=== PATIENT | female | born 1990 | race Caucasian/White ===

== ENCOUNTER 2021-02-06 14:10 | Inpatient (IN) | payer SELFPAY ==
[2021-02-06 14:40] VITALS: BMI 45.4
[2021-02-06] MEDS: BuSPIRONE 10 mg Tablet PO (17:50)
--- NOTE | 2021-02-06 20:48 | PC.NURSE ---
patients vitals were not put in
[2021-02-06 20:50] VITALS: BP 130/76; PULSE 112; RESP 18; TEMP 37; O2SAT 95
[2021-02-06] MEDS: topiramate 25 mg Tablet 50 MG PO (21:52)
[2021-02-06] MEDS: hyDROXYzine 25 mg Capsule 50 MG PO (21:52)
[2021-02-06] MEDS: trazodone 50 mg Tablet PO (21:52)
--- NOTE | 2021-02-06 21:55 | PC.NURSE ---
Patient requested medication for sleep and anxiety. Trazodone 50mg PO and Vistaril 50mg PO given.
[2021-02-07 06:00] VITALS: BP 116/75; PULSE 81; RESP 18; TEMP 36.5; O2SAT 95
[2021-02-07] MEDS: BuSPIRONE 10 mg Tablet PO ×2 (09:26→18:11)
[2021-02-07] MEDS: sertraline 50 mg Tablet PO (09:26)
[2021-02-07] MEDS: OLANZapine 10 mg TABLET PO (09:26)
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
[2021-02-07 14:00] VITALS: BP 103/66; PULSE 90; RESP 17; TEMP 36.6; O2SAT 95
[2021-02-07 20:58] VITALS: BP 127/88; PULSE 121; RESP 22; TEMP 36.6; O2SAT 93
[2021-02-07 21:03] VITALS: BP 110/69; PULSE 79; RESP 18; TEMP 36.9; O2SAT 98
[2021-02-07] MEDS: trazodone 50 mg Tablet PO (22:03)
[2021-02-07] MEDS: topiramate 25 mg Tablet 50 MG PO (22:04)
[2021-02-07] MEDS: hyDROXYzine 25 mg Capsule 50 MG PO (22:04)
--- NOTE | 2021-02-07 22:04 | PC.NURSE ---
Trazodone 50mg PO and Vistaril 50mg PO given for sleep / anxiety per patient request
[2021-02-08 06:00] VITALS: BP 96/52; PULSE 73; RESP 17; TEMP 36.7; O2SAT 92
[2021-02-08] MEDS: OLANZapine 10 mg TABLET PO (09:37)
[2021-02-08] MEDS: BuSPIRONE 10 mg Tablet PO ×2 (09:37→17:43)
[2021-02-08] MEDS: sertraline 50 mg Tablet PO (09:37)
--- NOTE | 2021-02-08 12:27 | NPU.GN ---
[facility] Topic:depression General Mood of Group: Edita participated in Group today. Edita was on time to group, dressed appropriately, she was well groomed and had good hygiene. We played Lightwire, at the end of the game, everyone was asked to write a number for how many of the symptoms they are having on top. Edita wrote her number down, we discussed the different symptoms of depression and how the symptoms listed that pertained to them are a way to know where to start when speaking with the doctor. It was also discussed the importance of following up with their mental health care, discussed ways to make appointments to see a mental health provider, ways to speak with their doctor about their symptoms.
[2021-02-08 14:00] VITALS: BP 96/65; PULSE 87; RESP 17; TEMP 36.3; O2SAT 93
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
[2021-02-08] MEDS: topiramate 25 mg Tablet 50 MG PO (20:05)
[2021-02-08 20:15] VITALS: BP 123/81; PULSE 97; RESP 17; TEMP 36.6; O2SAT 98
[2021-02-08] MEDS: trazodone 50 mg Tablet PO (20:48)
[2021-02-08] MEDS: acetaminophen 325 mg Tablet 650 MG PO (23:28)
[2021-02-09 06:00] VITALS: BP 113/71; PULSE 81; RESP 16; TEMP 36.7; O2SAT 96
[2021-02-09] MEDS: OLANZapine 10 mg TABLET PO (08:17)
[2021-02-09] MEDS: sertraline 50 mg Tablet PO (08:17)
[2021-02-09] MEDS: BuSPIRONE 10 mg Tablet PO ×2 (08:17→21:54)
[2021-02-09 14:00] VITALS: BP 113/71; PULSE 81; RESP 16; TEMP 36.7; O2SAT 96
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
[2021-02-09 18:14] VITALS: BP 112/78; PULSE 122; RESP 18; TEMP 36.8; O2SAT 98
[2021-02-09] MEDS: topiramate 25 mg Tablet 50 MG PO (21:54)
[2021-02-09] MEDS: trazodone 50 mg Tablet PO (21:55)
[2021-02-10 05:22] VITALS: BMI 45.4
[2021-02-10 06:00] VITALS: BP 104/67; PULSE 88; RESP 18; TEMP 36.8; O2SAT 95
[2021-02-10] MEDS: OLANZapine 10 mg TABLET 15 MG PO (08:47)
[2021-02-10] MEDS: BuSPIRONE 10 mg Tablet PO ×2 (08:47→21:10)
[2021-02-10] MEDS: sertraline 50 mg Tablet PO (08:48)
[2021-02-10 14:46] VITALS: BP 115/66; PULSE 101; RESP 20; TEMP 36.6; O2SAT 94
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
[2021-02-10] MEDS: topiramate 25 mg Tablet 50 MG PO (21:11)
[2021-02-10 22:00] VITALS: BP 121/72; PULSE 101; RESP 18; TEMP 36.7; O2SAT 95
[2021-02-11 06:00] VITALS: BP 115/70; PULSE 88; RESP 19; TEMP 36.8; O2SAT 98
[2021-02-11] MEDS: BuSPIRONE 10 mg Tablet PO ×2 (07:59→21:04)
[2021-02-11] MEDS: sertraline 50 mg Tablet PO (07:59)
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
[2021-02-11 14:00] VITALS: BP 99/67; PULSE 99; RESP 17; TEMP 36.9; O2SAT 95
[2021-02-11] MEDS: acetaminophen 325 mg Tablet 650 MG PO (21:03)
[2021-02-11] MEDS: topiramate 25 mg Tablet 50 MG PO (21:04)
[2021-02-11] MEDS: OLANZapine 10 mg TABLET 15 MG PO (21:04)
[2021-02-11 21:05] VITALS: BP 101/64; PULSE 99; RESP 16; TEMP 37.2; O2SAT 90
[2021-02-11] MEDS: trazodone 50 mg Tablet PO (21:07)
[2021-02-12] MEDS: hyDROXYzine 25 mg Capsule 50 MG PO (00:08)
[2021-02-12 06:00] VITALS: BP 109/75; PULSE 81; RESP 18; TEMP 36.4; O2SAT 94
[2021-02-12] MEDS: BuSPIRONE 10 mg Tablet PO ×2 (08:20→21:12)
[2021-02-12] MEDS: sertraline 50 mg Tablet 100 MG PO (08:21)
[2021-02-12 14:00] VITALS: BP 117/74; PULSE 96; RESP 20; TEMP 36.8; O2SAT 92
--- NOTE | 2021-02-12 14:47 | NPU.GN ---
[facility] Topic:Depression General Mood of Group: Edita did not attend group today. She stated that did not feel like attending.
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
[2021-02-12] MEDS: ondansetron 4 MG Tablet PO (21:11)
[2021-02-12] MEDS: OLANZapine 10 mg TABLET 15 MG PO (21:11)
[2021-02-12] MEDS: topiramate 25 mg Tablet 50 MG PO (21:12)
[2021-02-12 22:00] VITALS: BP 112/79; PULSE 121; RESP 18; TEMP 38.4; O2SAT 92
--- NOTE | 2021-02-13 02:59 | PC.NURSE ---
PT REQUESTED MED FOR UPSET STOMACH. ZOFRAN 4MG PO FOR UPSET STOMACH AND TYLENOL 650MG GIVEN FOR SLIGHT TEMP.
[2021-02-13 06:00] VITALS: BP 100/68; PULSE 83; RESP 16; TEMP 36.7; O2SAT 94
[2021-02-13] MEDS: sertraline 50 mg Tablet 100 MG PO (07:54)
[2021-02-13] MEDS: BuSPIRONE 10 mg Tablet PO ×2 (07:54→20:34)
--- NOTE | 2021-02-13 12:21 | NPU.GN ---
[facility] Topic: self medicating General Mood of Group: No/sleeping
[2021-02-13 14:00] VITALS: BP 141/83; PULSE 93; RESP 16; TEMP 36.6; O2SAT 97
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
[2021-02-13 20:16] VITALS: BP 111/75; PULSE 114; RESP 16; TEMP 38.2; O2SAT 96
[2021-02-13] MEDS: topiramate 25 mg Tablet 50 MG PO (20:34)
[2021-02-13] MEDS: OLANZapine 10 mg TABLET 15 MG PO (20:35)
[2021-02-14 06:00] VITALS: BP 128/79; PULSE 78; RESP 18; TEMP 36.8; O2SAT 97
[2021-02-14] MEDS: hyDROXYzine 25 mg Capsule 50 MG PO (07:37)
[2021-02-14] MEDS: BuSPIRONE 10 mg Tablet PO (09:16)
[2021-02-14] MEDS: sertraline 50 mg Tablet 100 MG PO (09:16)
[2021-02-14] MEDS: ondansetron 4 MG Tablet PO (10:27)
--- NOTE | 2021-02-14 10:28 | PC.NURSE ---
Patient reports vomiting at this time. Zofran 4mg PO given to patient per her request.
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
[2021-02-14 12:29] VITALS: BP 128/79; PULSE 78; RESP 18; TEMP 36.8; O2SAT 97
[2021-02-14 14:00] VITALS: BP 140/89; PULSE 120; RESP 20; TEMP 36.5; O2SAT 94
== END 2021-02-14 15:16 | disposition home or self-care (01) | DRG 881 ==
PROVIDERS: Admitting Provider Psychiatry & Neurology Child & Adolescent Psychiatry; Visit Provider Psychiatry & Neurology Psychiatry
DX: F32.9 Major depressive disorder, single episode, unspecified (principal); R45.851 Suicidal ideations; Z68.42 Body mass index [BMI] 45.0-49.9, adult; F17.210 Nicotine dependence, cigarettes, uncomplicated; E66.9 Obesity, unspecified; Z81.8 Family history of other mental and behavioral disorders; Z63.0 Problems in relationship with spouse or partner; Z88.0 Allergy status to penicillin
CPT/HCPCS: Q0162